=== PATIENT | male | born 1960 | race Caucasian/White ===

== ENCOUNTER 2022-10-30 05:39 | Emergency (ER) | payer OTHER ==
[~2022-10-30] VITALS: Ht 177.8 cm; Wt 77.1 kg
[2022-10-30 05:40] VITALS: BP_SYST 128
--- NOTE | 2022-10-30 05:40 | NUR ---
Triaged and placed patient in ER bed 6 for evaluation. Report given to Lelo LAW for continuity of care. VSS, no acute respiratory distress noted at this time. Instructed to notify ED staff for any changes in condition or worsening of symptoms. Patient verbalized understanding.
--- NOTE | 2022-10-30 05:50 | NUR ---
Pt is noted in bed alert, responsive as he came from home C/O Neck pain started 3-4days ago. Pt care continue as awaits MD .
--- NOTE | 2022-10-30 06:08 | NUR ---
noted at bedside. Pt care continue.
[2022-10-30] MEDS ORDERED: MORPHINE 4 MG INJ. 4 MG/ML VIAL IM ONE (06:15)
--- NOTE | 2022-10-30 06:29 | NUR ---
Pt received Morphine 4mg IM as ordered. Pt care continue.
--- NOTE | 2022-10-30 06:35 | NUR ---
Pt is noted off to CT . Pt care continue .
--- NOTE | 2022-10-30 06:45 | NUR ---
Pt care continue as he is back from [place].
[2022-10-30 06:52] LABS: CALCIUM 8.5 mg/dL (8.4-11.0); CREATININE 1.4 mg/dL (0.55-1.30)
[2022-10-30 06:54] LABS: ALBUMIN 3.5 g/dL (3.4-4.8); C-REACTIVE PROTEIN QUANT 0.2 mg/dL (0-0.5); TOTAL BILIRUBIN 0.5 mg/dL (0.0-1.0)
[2022-10-30 07:13] LABS: BASOPHILS # (AUTO) 0.1 K/uL (0.0-0.2); EOSINOPHILS # (AUTO) 0.1 K/uL (0.0-0.4); EOSINOPHILS % (AUTO) 1.8 % (0.0-4.0); HEMATOCRIT 42.9 % (36-54); HEMOGLOBIN 14.4 g/dL (14.0-18.0); LYMPHOCYTES % (AUTO) 37.9 % (20.5-51.5); MEAN CORPUSCULAR HEMOGLOBIN 31 pg (27-31); MEAN CORPUSCULAR HGB CONC 33 % (32-36); MEAN CORPUSCULAR VOLUME 94 fL (79.0-98.0); MONOCYTES # (AUTO) 0.5 K/uL (0.0-1.0); NEUTROPHILS # (AUTO) 2.7 K/uL (1.8-7.7); NEUTROPHILS % (AUTO) 50.3 % (40.0-70.0); PLATELET COUNT (AUTO) 204 K/uL (130-430); RED BLOOD CELL COUNT(AUTO) 4.56 MIL/uL (4.2-6.2); RED CELL DISTRIBUTION WIDTH 12.9 % (9.0-15.0); WHITE BLOOD COUNT (AUTO) 5.3 K/uL (4.8-10.8)
[2022-10-30 07:50] VITALS: BP_SYST 136
--- NOTE | 2022-10-30 07:52 | NUR ---
ASSESMENT PER FLOWSHEET. COMFORT MEASURES AND SUPPORTIVE CARE CONTINUED. PT RESTING COMFORTABLY IN GUERNEY AT THIS TIME. STATES USES "CAPSAZIN PADS" TO NECK FOR PAIN MANAGEMENT IN ADDITION TO PHARMACEUTICALS. PT DECLINES ANY OTHER THERAPUETIC MODALITIES AT THIS TIME. VERB ACCEPTABLE LEVEL OF COMFORT. AWAIT ERMD DISPO. TO CONTINUE PLAN OF CARE. NAD. VSS.
[2022-10-30] MEDS ORDERED: TRAM50TA2 PO (08:58)
[2022-10-30] MEDS ORDERED: IBUP-1971 PO (08:58)
--- NOTE | 2022-10-30 09:00 | NUR ---
PT VERB ACCEPTABLE LEVEL OF COMFORT. PENDING DC HOME
--- NOTE | 2022-10-30 09:15 | NUR ---
VERB UNDERSTANDING OF ACI. PT IN GOOD SPIRITS. AMBULATES TO LOBBY W/O LIMITATIONS
[2022-10-31] MEDS ORDERED: HYDR-3917 PO (14:40)
== END 2022-10-30 09:15 | disposition home or self-care (01) ==
LOC: SED 05:39
DX: M54.2 Cervicalgia (principal); G89.29 Other chronic pain; Z79.899 Other long term (current) drug therapy
CPT/HCPCS: 99285; 72125; 80053; 85025; 86140; 36415; 76376; 96372; J2270

== ENCOUNTER 2022-10-31 12:00 | Emergency (ER) | payer OTHER ==
[~2022-10-31] VITALS: Ht 177.8 cm; Wt 77.1 kg
[2022-10-31 12:00] VITALS: BP_SYST 131
[~2022-10-31 12:00] MED LIST: IBUP-1971 PO; TRAM50TA2 PO
--- NOTE | 2022-10-31 12:00 | NUR ---
Patient triaged and placed in waiting room. VSS and patient appears in no acute distress at this time. Accompanied by SELF, awaiting available bed, and MD notified of need for MSE.
--- NOTE | 2022-10-31 12:10 | NUR ---
PT STATES HE WAS SEEN HERE YESTERDAY [employer] [employer] AND DISCHARGED WITH TRAMADOL AND IBUPROFEN. STATES HE IS STILL IN HORRIBLE SEVERE PAIN TO RIGHT SIDE OF NECK. UNABLE TO GET INTO SEE SPECIALIST FOR MONTHS
--- NOTE | 2022-10-31 14:10 | NUR ---
DR LANG OUT TO TRIAGE ROOM FOR EVALUATION
[2022-10-31] MEDS ORDERED: HYDR-3917 PO (14:40)
--- NOTE | 2022-10-31 15:07 | NUR ---
Patient given written and verbal discharge instructions and verbalizes understanding. ER MD discussed with patient the results and treatment provided. Patient in stable condition. ID arm band removed. Rx of NORCO given. Patient educated on pain management and to follow up with PMD. Pain Scale 0/10. Opportunity for questions provided and answered. Medication side effect fact sheet provided.
== END 2022-10-31 15:00 | disposition home or self-care (01) ==
LOC: SED 12:00
DX: M54.2 Cervicalgia (principal); G89.29 Other chronic pain; Z79.899 Other long term (current) drug therapy
CPT/HCPCS: 99282

== ENCOUNTER 2023-07-30 04:21 | Emergency (ER) | payer OTHER ==
[~2023-07-30] VITALS: Ht 180.3 cm; Wt 79.4 kg
[~2023-07-30 04:21] MED LIST changes: +HYDR-3917 PO
[2023-07-30 04:30] VITALS: BP_SYST 153; PULSE 85; RESP 17; TEMP 98.3; O2SAT 98
[2023-07-30] MEDS ORDERED: MORPHINE 4 MG INJ. 4 MG/ML VIAL IM ONE (04:45)
[2023-07-30] MEDS ORDERED: hydrALAZINE HCL 20 MG/ML VIAL IVP ONE (06:15)
[2023-07-30 06:39] VITALS: BP_SYST 142; PULSE 59; RESP 17; TEMP 98.3; O2SAT 98
[2023-07-30] MEDS ORDERED: LISI20TA30 PO (06:41)
[2023-07-30] MEDS ORDERED: MELO-89 PO (15:29)
== END 2023-07-30 06:48 | disposition home or self-care (01) ==
LOC: SED 04:21
DX: I10 Essential (primary) hypertension (principal); R51.9 Headache, unspecified; Z79.899 Other long term (current) drug therapy
CPT/HCPCS: 99285; 96374; 70450; 76376; 96372; J0360; J2270

== ENCOUNTER 2023-07-30 12:54 | Emergency (ER) | payer OTHER ==
[~2023-07-30] VITALS: Ht 182.9 cm; Wt 81.2 kg
[~2023-07-30 12:54] MED LIST changes: +LISI20TA30 PO
[2023-07-30 13:01] VITALS: BP_SYST 154; PULSE 79; RESP 20; TEMP 97.9; O2SAT 99
[2023-07-30] MEDS ORDERED: LABETALOL HCL 20 MG/4 ML CARTRIDGE IVP ONE (13:15)
[2023-07-30] MEDS ORDERED: ONDANSETRON HCL 4 MG/2 ML VIAL IVP ONE (14:45)
[2023-07-30] MEDS ORDERED: HYDROmorphone 1 MG/ML INJ. CARTRIDGE IVP ONE (14:45)
[2023-07-30 15:29] VITALS: BP_SYST 144; PULSE 67; RESP 20; TEMP 97.9; O2SAT 96
[2023-07-30] MEDS ORDERED: MELO-89 PO (15:29)
[2023-07-30 18:30] LABS: BASOPHILS # (AUTO) 0.1 K/uL (0.0-0.2); BASOPHILS % (AUTO) 0.7 % (0.0-2.0); EOSINOPHILS # (AUTO) 0.1 K/uL (0.0-0.4); HEMATOCRIT 44.4 % (36-54); LYMPHOCYTES # (AUTO) 1.7 K/uL (1.0-5.5); MEAN CORPUSCULAR HEMOGLOBIN 33 pg (27-31); MEAN CORPUSCULAR HGB CONC 36 % (32-36); MEAN CORPUSCULAR VOLUME 92 fL (79.0-98.0); MONOCYTES # (AUTO) 0.5 K/uL (0.0-1.0); MONOCYTES % (AUTO) 4.8 % (1.7-9.3); NEUTROPHILS # (AUTO) 7.3 K/uL (1.8-7.7); NEUTROPHILS % (AUTO) 75.5 % (40.0-70.0); PLATELET COUNT (AUTO) 266 K/uL (130-430); RED BLOOD CELL COUNT(AUTO) 4.82 MIL/uL (4.2-6.2); RED CELL DISTRIBUTION WIDTH 13.2 % (9.0-15.0); WHITE BLOOD COUNT (AUTO) 9.7 K/uL (4.8-10.8)
[2023-07-30 18:36] LABS: CALCIUM 9.5 mg/dL (8.4-11.0); CREATININE 1.08 mg/dL (0.55-1.30); POTASSIUM 3.7 mmol/L (3.5-5.1)
[2023-07-30 18:40] LABS: BILIRUBIN,DIRECT 0.1 mg/dL (0.0-0.3); TOTAL BILIRUBIN 0.4 mg/dL (0.0-1.0); TOTAL PROTEIN, SERUM 7.2 g/dL (6.4-8.3)
== END 2023-07-30 15:35 | disposition home or self-care (01) ==
LOC: SED 12:54
DX: R51.9 Headache, unspecified (principal); H53.8 Other visual disturbances; I10 Essential (primary) hypertension; Z79.899 Other long term (current) drug therapy
CPT/HCPCS: 99285; 96374; 70450; 96375; 80076; 80048; 85025; 85651; 84484; 36415; 93005; 76376; J2405; J1170